=== PATIENT | male | born 1940 | race Caucasian/White ===

== ENCOUNTER 2020-04-14 04:39 | Inpatient (IN) | payer OTHER ==
[2020-04-14] MEDS ORDERED: CEFAZOLIN 2 GM/D5W 2 GM/50 ML ML IVPB ONE (10:28)
[2020-04-14] MEDS ORDERED: ceFAZolin SODIUM 1 GM VIAL ONE (10:39)
[2020-04-14] MEDS ORDERED: LIDOCAINE HCL 1%, 10 MG/ML (20ML VIAL) ONE (10:51)
[2020-04-14] MEDS ORDERED: EPHEDRINE SULFATE/0.9% NACL/PF 50 MG/10 ML SYRINGE NR ONE (12:21)
[2020-04-14] MEDS ORDERED: ROCURONIUM BROMIDE 50 MG/5 ML SYRINGE ONE ×2 (12:21→13:02)
[2020-04-14] MEDS ORDERED: PROPOFOL 20 ML ONE ×2 (12:21→13:02)
[2020-04-14] MEDS ORDERED: SUCCINYLCHOLINE CHLORIDE 200 MG/10 ML SYRINGE ONE (12:21)
[2020-04-14] MEDS ORDERED: MIDAZOLAM HCL 2 MG/2 ML SINGLE DOSE VIAL ONE (13:02)
[2020-04-14] MEDS ORDERED: ETOMIDATE 20 MG/10 ML AMPUL IVPUSH ONE (13:03)
[2020-04-14] MEDS ORDERED: oxyCODONE HCL 5 MG TABLET PO PRN ×2 (13:44→18:51)
[2020-04-14] MEDS ORDERED: ONDANSETRON 4 MG/2 ML VIAL IVPUSH PRN (13:44)
[2020-04-14] MEDS ORDERED: LACTATED RINGERS SOLUTION 1,000 ML IV SCH (13:45)
[2020-04-14] MEDS ORDERED: GLYCOPYRROLATE 0.2 MG/1 ML VIAL ONE (13:46)
[2020-04-14] MEDS ORDERED: NEOSTIGMINE METHYLSULFATE 0.5 MG/ML - 10 ML MDV ONE (13:46)
[2020-04-14] MEDS ORDERED: METOLAZONE 5 MG TABLET PO PRN (14:22)
[2020-04-14] MEDS ORDERED: SODIUM CHLORIDE 1,000 ML IV SCH (15:15)
[2020-04-14] MEDS ORDERED: oxyCODONE HCL 5 MG TABLET ONE (17:27)
[2020-04-14] MEDS ORDERED: MORPHINE SULFATE 2 MG/ML VIAL ONE (17:27)
[2020-04-14] MEDS: MORPHINE SULFATE 2 MG/ML VIAL IVPUSH PRN ×2 (17:30→23:12)
[2020-04-14] MEDS: FERROUS SO4 325 MG TABLET (FP) PO SCH (18:00)
[2020-04-14] MEDS: INSULIN SLIDING SCALE (NOVOLOG) 1 VIAL SQ SCH ×2 (19:21→21:48)
[2020-04-14] MEDS: DOCUSATE SODIUM 100 MG CAPSULE (FP) PO SCH (21:09)
[2020-04-14] MEDS: HEPARIN NA (PORCINE) 5,000 UNITS/ML 1ML VIAL SQ SCH (21:09)
[2020-04-14] MEDS: CEFAZOLIN 2 GM/D5W 2 GM/50 ML ML IVPB SCH (21:09)
[2020-04-14] MEDS: GABAPENTIN 100 MG CAPSULE PO SCH (21:10)
[2020-04-14] MEDS: BACLOFEN 10 MG TABLET (FP) PO SCH (21:10)
[2020-04-14] MEDS: oxyCODONE HCL 10 MG SUSTAINED ACTING TABLET PO SCH (21:10)
[2020-04-14] MEDS: ATORVASTATIN CA 40 MG TABLET (FP) PO SCH (21:10)
[2020-04-14] MEDS ORDERED: [UNRECOGNIZED DRUG - OTHER] PO SCH (22:00)
[2020-04-14] MEDS ORDERED: ZINC 50 MG PO SCH (22:00)
[2020-04-14] MEDS ORDERED: metoPROLOL SUCCINATE 25 MG TAB.SR.24H (FP) PO SCH (22:00)
[2020-04-15] MEDS: ACETAMINOPHEN 325 MG TABLET (FP) PO PRN (00:42)
[2020-04-15] MEDS: MORPHINE SULFATE 2 MG/ML VIAL IVPUSH PRN ×3 (03:34→21:40)
[2020-04-15] MEDS: CEFAZOLIN 2 GM/D5W 2 GM/50 ML ML IVPB SCH (04:38)
[2020-04-15] MEDS: HEPARIN NA (PORCINE) 5,000 UNITS/ML 1ML VIAL SQ SCH ×3 (05:55→21:33)
[2020-04-15] MEDS: GABAPENTIN 100 MG CAPSULE PO SCH ×3 (05:55→21:33)
[2020-04-15] MEDS: INSULIN SLIDING SCALE (NOVOLOG) 1 VIAL SQ SCH ×4 (06:14→21:39)
[2020-04-15] MEDS: oxyCODONE HCL 5 MG TABLET PO PRN ×2 (06:44→19:43)
[2020-04-15 08:29] LABS: BASO % 0.7 % (0-2.0); EOS % 0.7 % (0-4.5); HEMATOCRIT 24.2 % (35.4-49); HEMOGLOBIN 8.1 GM/dL (11.7-16.9); LYMPH % 12.3 % (8-40); MCH 27.1 pg (25.7-33.7); MCHC 33.3 g/dl (32.0-35.9); MEAN CELL VOLUME 81.3 fl (80-96); MEAN PLT VOLUME 8.2 fl (7.5-11.1); MONO % 6.1 % (3.8-10.2); NEUT % 80.2 % (42.8-82.8); PLATELET COUNT 187 K/MM3 (134-434); RBC 2.98 M/mm3 (4.00-5.60); RDW 17.9 % (11.9-15.9); WHITE BLOOD COUNT 6.4 K/mm3 (4.0-10.0)
[2020-04-15 08:53] LABS: ALBUMIN 2.5 g/dl (3.4-5.0); CALCIUM 8.2 mg/dL (8.5-10.1)
[2020-04-15 08:54] LABS: BLOOD UREA NITROGEN 26.4 mg/dL (7-18)
[2020-04-15 08:57] LABS: CREATININE 0.8 mg/dL (0.55-1.3)
[2020-04-15 08:58] LABS: BILIRUBIN,TOTAL 1.5 mg/dL (0.2-1); TOT PROT 6.2 g/dl (6.4-8.2)
[2020-04-15] MEDS ORDERED: PT OWN MED DRAWER 7, Y5N ONE (09:51)
[2020-04-15] MEDS: FERROUS SO4 325 MG TABLET (FP) PO SCH ×3 (09:54→16:40)
[2020-04-15] MEDS: THIAMINE HCL 100 MG TABLET (FP) PO SCH (09:54)
[2020-04-15] MEDS: BACLOFEN 10 MG TABLET (FP) PO SCH ×2 (09:54→21:33)
[2020-04-15] MEDS: MULTIVITAMINS (DAILY MVI) TABLET (FP) PO SCH (09:54)
[2020-04-15] MEDS: ASCORBIC ACID 500 MG TABLET (FP) PO SCH (09:54)
[2020-04-15] MEDS: FUROSEMIDE 40 MG TABLET (FP) PO SCH (09:54)
[2020-04-15] MEDS: SPIRONOLACTONE 25 MG TABLET PO SCH (09:55)
[2020-04-15] MEDS: oxyCODONE HCL 10 MG SUSTAINED ACTING TABLET PO SCH ×2 (09:55→21:32)
[2020-04-15] MEDS: SERTRALINE HCL 50 MG TABLET (FP) PO SCH (09:55)
[2020-04-15] MEDS: COLLAGENASE CLOSTRIDIUM HIST. 30 GRAMS TUBE TP SCH (09:56)
[2020-04-15] MEDS ORDERED: COLLAGENASE CLOSTRIDIUM HIST. 30 GRAMS TUBE TP SCH (10:00)
[2020-04-15] MEDS: POLYETHYLENE GLYCOL 3350 119 GM BTL PO SCH (10:15)
[2020-04-15] MEDS ORDERED: INSULIN (NOVOLOG) ASPART 100 UNITS/ML 10ML VIAL ONE (11:12)
[2020-04-15] MEDS: DOCUSATE SODIUM 100 MG CAPSULE (FP) PO SCH (21:32)
[2020-04-15] MEDS: ATORVASTATIN CA 40 MG TABLET (FP) PO SCH (21:32)
[2020-04-16] MEDS: GABAPENTIN 100 MG CAPSULE PO SCH ×3 (05:32→21:58)
[2020-04-16] MEDS: ZINC SULFATE 220 MG CAPSULE (FP) PO SCH ×3 (05:32→21:58)
[2020-04-16] MEDS: ACETAMINOPHEN 325 MG TABLET (FP) PO PRN (05:33)
[2020-04-16] MEDS: HEPARIN NA (PORCINE) 5,000 UNITS/ML 1ML VIAL SQ SCH ×3 (05:33→22:09)
[2020-04-16] MEDS: INSULIN SLIDING SCALE (NOVOLOG) 1 VIAL SQ SCH ×4 (06:33→22:08)
[2020-04-16 07:58] LABS: BASO % 0.5 % (0-2.0); EOS % 2.4 % (0-4.5); HEMATOCRIT 23.5 % (35.4-49); HEMOGLOBIN 7.8 GM/dL (11.7-16.9); LYMPH % 20.6 % (8-40); MCH 27.4 pg (25.7-33.7); MCHC 33.3 g/dl (32.0-35.9); MEAN CELL VOLUME 82.3 fl (80-96); MEAN PLT VOLUME 8.4 fl (7.5-11.1); MONO % 7.4 % (3.8-10.2); NEUT % 69.1 % (42.8-82.8); PLATELET COUNT 177 K/MM3 (134-434); RBC 2.86 M/mm3 (4.00-5.60); RDW 17.7 % (11.9-15.9); WHITE BLOOD COUNT 5.3 K/mm3 (4.0-10.0)
[2020-04-16 08:08] LABS: POTASSIUM 4.2 mmol/L (3.5-5.1)
[2020-04-16 08:27] LABS: ALBUMIN 2.6 g/dl (3.4-5.0); BLOOD UREA NITROGEN 26.1 mg/dL (7-18); CALCIUM 8.2 mg/dL (8.5-10.1)
[2020-04-16 08:30] LABS: CREATININE 0.9 mg/dL (0.55-1.3)
[2020-04-16 08:32] LABS: BILIRUBIN,TOTAL 0.6 mg/dL (0.2-1); TOT PROT 6.5 g/dl (6.4-8.2)
[2020-04-16] MEDS: oxyCODONE HCL 10 MG SUSTAINED ACTING TABLET PO SCH ×2 (09:15→21:58)
[2020-04-16] MEDS: FERROUS SO4 325 MG TABLET (FP) PO SCH ×3 (09:16→17:10)
[2020-04-16] MEDS: SERTRALINE HCL 50 MG TABLET (FP) PO SCH (09:16)
[2020-04-16] MEDS: POLYETHYLENE GLYCOL 3350 119 GM BTL PO SCH (09:16)
[2020-04-16] MEDS: MULTIVITAMINS (DAILY MVI) TABLET (FP) PO SCH (09:16)
[2020-04-16] MEDS: ASCORBIC ACID 500 MG TABLET (FP) PO SCH (09:16)
[2020-04-16] MEDS: BACLOFEN 10 MG TABLET (FP) PO SCH ×2 (09:16→21:58)
[2020-04-16] MEDS: FUROSEMIDE 40 MG TABLET (FP) PO SCH (09:16)
[2020-04-16] MEDS: SPIRONOLACTONE 25 MG TABLET PO SCH (09:16)
[2020-04-16] MEDS: THIAMINE HCL 100 MG TABLET (FP) PO SCH (09:16)
[2020-04-16] MEDS: COLLAGENASE CLOSTRIDIUM HIST. 30 GRAMS TUBE TP SCH (11:54)
[2020-04-16] MEDS: oxyCODONE HCL 5 MG TABLET PO PRN (15:30)
[2020-04-16 16:58] VITALS: BMI 19.6
[2020-04-16] MEDS: MORPHINE SULFATE 2 MG/ML VIAL IVPUSH PRN (18:35)
[2020-04-16] MEDS: DOCUSATE SODIUM 100 MG CAPSULE (FP) PO SCH (21:57)
[2020-04-16] MEDS: ATORVASTATIN CA 40 MG TABLET (FP) PO SCH (21:58)
[2020-04-17] MEDS: INSULIN SLIDING SCALE (NOVOLOG) 1 VIAL SQ SCH ×4 (06:26→21:20)
[2020-04-17] MEDS: ZINC SULFATE 220 MG CAPSULE (FP) PO SCH ×3 (06:27→21:11)
[2020-04-17] MEDS: MORPHINE SULFATE 2 MG/ML VIAL IVPUSH PRN ×2 (06:27→11:31)
[2020-04-17] MEDS: GABAPENTIN 100 MG CAPSULE PO SCH ×3 (06:27→21:11)
[2020-04-17] MEDS: HEPARIN NA (PORCINE) 5,000 UNITS/ML 1ML VIAL SQ SCH ×3 (06:27→21:11)
[2020-04-17] MEDS: FERROUS SO4 325 MG TABLET (FP) PO SCH ×3 (09:00→17:27)
[2020-04-17 09:55] LABS: BASO % 0.5 % (0-2.0); EOS % 2.2 % (0-4.5); HEMATOCRIT 23.8 % (35.4-49); HEMOGLOBIN 7.8 GM/dL (11.7-16.9); MCHC 32.9 g/dl (32.0-35.9); MEAN PLT VOLUME 8.4 fl (7.5-11.1); MONO % 5.5 % (3.8-10.2); NEUT % 76.8 % (42.8-82.8); PLATELET COUNT 196 K/MM3 (134-434); WHITE BLOOD COUNT 5.4 K/mm3 (4.0-10.0)
[2020-04-17 10:33] LABS: CALCIUM 8.5 mg/dL (8.5-10.1)
[2020-04-17 10:34] LABS: BLOOD UREA NITROGEN 23.7 mg/dL (7-18)
[2020-04-17 10:37] LABS: CREATININE 0.7 mg/dL (0.55-1.3)
[2020-04-17 10:38] LABS: POTASSIUM 3.9 mmol/L (3.5-5.1)
[2020-04-17] MEDS ORDERED: PT OWN MED DRAWER 7, Y5N ONE (10:45)
[2020-04-17] MEDS: AMINO ACIDS/PROTEIN HYDROLYS 30 ML LIQUID.PKT PO SCH (10:51)
[2020-04-17] MEDS: MULTIVITAMINS (DAILY MVI) TABLET (FP) PO SCH (10:51)
[2020-04-17] MEDS: SERTRALINE HCL 50 MG TABLET (FP) PO SCH (10:51)
[2020-04-17] MEDS: THIAMINE HCL 100 MG TABLET (FP) PO SCH (10:52)
[2020-04-17] MEDS: FUROSEMIDE 40 MG TABLET (FP) PO SCH (10:52)
[2020-04-17] MEDS: SPIRONOLACTONE 25 MG TABLET PO SCH (10:52)
[2020-04-17] MEDS: oxyCODONE HCL 10 MG SUSTAINED ACTING TABLET PO SCH ×2 (10:52→21:09)
[2020-04-17] MEDS: ASCORBIC ACID 500 MG TABLET (FP) PO SCH (10:52)
[2020-04-17] MEDS: BACLOFEN 10 MG TABLET (FP) PO SCH ×2 (10:52→21:12)
[2020-04-17] MEDS: COLLAGENASE CLOSTRIDIUM HIST. 30 GRAMS TUBE TP SCH (10:53)
[2020-04-17] MEDS: POLYETHYLENE GLYCOL 3350 119 GM BTL PO SCH (10:53)
[2020-04-17] MEDS: DOCUSATE SODIUM 100 MG CAPSULE (FP) PO SCH (21:11)
[2020-04-17] MEDS: ATORVASTATIN CA 40 MG TABLET (FP) PO SCH (21:11)
[2020-04-18] MEDS: oxyCODONE HCL 5 MG TABLET PO PRN (05:15)
[2020-04-18] MEDS: HEPARIN NA (PORCINE) 5,000 UNITS/ML 1ML VIAL SQ SCH ×3 (05:16→21:33)
[2020-04-18] MEDS: ZINC SULFATE 220 MG CAPSULE (FP) PO SCH ×3 (05:16→21:37)
[2020-04-18] MEDS: GABAPENTIN 100 MG CAPSULE PO SCH ×4 (05:17→21:37)
[2020-04-18] MEDS: INSULIN SLIDING SCALE (NOVOLOG) 1 VIAL SQ SCH ×4 (06:09→21:36)
[2020-04-18] MEDS: FERROUS SO4 325 MG TABLET (FP) PO SCH ×3 (08:31→17:33)
[2020-04-18] MEDS: AMINO ACIDS/PROTEIN HYDROLYS 30 ML LIQUID.PKT PO SCH (08:31)
[2020-04-18 09:42] LABS: HEMATOCRIT 22.9 % (35.4-49); HEMOGLOBIN 7.6 GM/dL (11.7-16.9); MCH 27.3 pg (25.7-33.7); MCHC 33.1 g/dl (32.0-35.9); MEAN CELL VOLUME 82.5 fl (80-96); MEAN PLT VOLUME 8.4 fl (7.5-11.1); PLATELET COUNT 196 K/MM3 (134-434); RBC 2.78 M/mm3 (4.00-5.60); RDW 17.7 % (11.9-15.9); WHITE BLOOD COUNT 5.1 K/mm3 (4.0-10.0)
[2020-04-18] MEDS: SERTRALINE HCL 50 MG TABLET (FP) PO SCH (09:50)
[2020-04-18] MEDS: oxyCODONE HCL 10 MG SUSTAINED ACTING TABLET PO SCH ×2 (09:50→21:38)
[2020-04-18] MEDS: BACLOFEN 10 MG TABLET (FP) PO SCH ×2 (09:51→21:37)
[2020-04-18] MEDS: FUROSEMIDE 40 MG TABLET (FP) PO SCH (09:51)
[2020-04-18] MEDS: MULTIVITAMINS (DAILY MVI) TABLET (FP) PO SCH (09:51)
[2020-04-18] MEDS: SPIRONOLACTONE 25 MG TABLET PO SCH (09:51)
[2020-04-18] MEDS: ASCORBIC ACID 500 MG TABLET (FP) PO SCH (09:51)
[2020-04-18] MEDS: THIAMINE HCL 100 MG TABLET (FP) PO SCH (09:51)
[2020-04-18] MEDS: POLYETHYLENE GLYCOL 3350 119 GM BTL PO SCH (09:52)
[2020-04-18] MEDS: COLLAGENASE CLOSTRIDIUM HIST. 30 GRAMS TUBE TP SCH (09:52)
[2020-04-18 10:02] LABS: POTASSIUM 3.9 mmol/L (3.5-5.1)
[2020-04-18 10:12] LABS: BLOOD UREA NITROGEN 26.5 mg/dL (7-18); CALCIUM 8.3 mg/dL (8.5-10.1)
[2020-04-18 10:15] LABS: CREATININE 0.8 mg/dL (0.55-1.3)
[2020-04-18] MEDS: ATORVASTATIN CA 40 MG TABLET (FP) PO SCH (21:37)
[2020-04-18] MEDS: METOPROLOL TARTRATE 25 MG TABLET (FP) PO SCH (21:39)
[2020-04-18] MEDS: DOCUSATE SODIUM 100 MG CAPSULE (FP) PO SCH (21:39)
[2020-04-19] MEDS: HEPARIN NA (PORCINE) 5,000 UNITS/ML 1ML VIAL SQ SCH ×3 (05:18→21:17)
[2020-04-19] MEDS: GABAPENTIN 100 MG CAPSULE PO SCH ×3 (05:19→21:16)
[2020-04-19] MEDS: ZINC SULFATE 220 MG CAPSULE (FP) PO SCH ×3 (05:19→21:18)
[2020-04-19] MEDS: INSULIN SLIDING SCALE (NOVOLOG) 1 VIAL SQ SCH ×4 (06:16→21:18)
[2020-04-19 08:59] LABS: EOS % 3.8 % (0-4.5); HEMATOCRIT 25.7 % (35.4-49); HEMOGLOBIN 8.6 GM/dL (11.7-16.9); LYMPH % 18.6 % (8-40); MCH 27.2 pg (25.7-33.7); MCHC 33.3 g/dl (32.0-35.9); MEAN CELL VOLUME 81.4 fl (80-96); MONO % 5.9 % (3.8-10.2); NEUT % 70.7 % (42.8-82.8); PLATELET COUNT 242 K/MM3 (134-434); RBC 3.16 M/mm3 (4.00-5.60); RDW 17.6 % (11.9-15.9); WHITE BLOOD COUNT 4.6 K/mm3 (4.0-10.0)
[2020-04-19 09:07] LABS: POTASSIUM 4.7 mmol/L (3.5-5.1)
[2020-04-19 09:09] LABS: BLOOD UREA NITROGEN 25.8 mg/dL (7-18); CALCIUM 8.6 mg/dL (8.5-10.1)
[2020-04-19 09:10] LABS: ALBUMIN 2.7 g/dl (3.4-5.0); MAGNESIUM 2.2 mg/dL (1.8-2.4)
[2020-04-19 09:12] LABS: CREATININE 0.7 mg/dL (0.55-1.3); PHOSPHOROUS 3.2 mg/dL (2.5-4.9)
[2020-04-19 09:14] LABS: BILIRUBIN,TOTAL 0.4 mg/dL (0.2-1); TOT PROT 6.8 g/dl (6.4-8.2)
[2020-04-19] MEDS: SPIRONOLACTONE 25 MG TABLET PO SCH (09:21)
[2020-04-19] MEDS: MULTIVITAMINS (DAILY MVI) TABLET (FP) PO SCH (09:21)
[2020-04-19] MEDS: THIAMINE HCL 100 MG TABLET (FP) PO SCH (09:21)
[2020-04-19] MEDS: AMINO ACIDS/PROTEIN HYDROLYS 30 ML LIQUID.PKT PO SCH (09:21)
[2020-04-19] MEDS: ASCORBIC ACID 500 MG TABLET (FP) PO SCH (09:22)
[2020-04-19] MEDS: METOPROLOL TARTRATE 25 MG TABLET (FP) PO SCH ×2 (09:22→21:18)
[2020-04-19] MEDS: BACLOFEN 10 MG TABLET (FP) PO SCH ×2 (09:22→21:17)
[2020-04-19] MEDS: SERTRALINE HCL 50 MG TABLET (FP) PO SCH (09:22)
[2020-04-19] MEDS: FERROUS SO4 325 MG TABLET (FP) PO SCH ×3 (09:22→17:00)
[2020-04-19] MEDS: FUROSEMIDE 40 MG TABLET (FP) PO SCH (09:22)
[2020-04-19] MEDS: oxyCODONE HCL 10 MG SUSTAINED ACTING TABLET PO SCH ×2 (09:23→21:20)
[2020-04-19] MEDS: POLYETHYLENE GLYCOL 3350 119 GM BTL PO SCH (09:25)
[2020-04-19] MEDS: COLLAGENASE CLOSTRIDIUM HIST. 30 GRAMS TUBE TP SCH (11:41)
[2020-04-19] MEDS ORDERED: PT OWN MED DRAWER 7, Y5N ONE (11:51)
[2020-04-19] MEDS: ATORVASTATIN CA 40 MG TABLET (FP) PO SCH (21:16)
[2020-04-19] MEDS: DOCUSATE SODIUM 100 MG CAPSULE (FP) PO SCH (21:17)
[2020-04-20] MEDS: HEPARIN NA (PORCINE) 5,000 UNITS/ML 1ML VIAL SQ SCH (05:12)
[2020-04-20] MEDS: GABAPENTIN 100 MG CAPSULE PO SCH (05:12)
[2020-04-20] MEDS: ZINC SULFATE 220 MG CAPSULE (FP) PO SCH (05:12)
[2020-04-20] MEDS: INSULIN SLIDING SCALE (NOVOLOG) 1 VIAL SQ SCH (06:22)
[2020-04-20 08:32] LABS: BASO % 0.8 % (0-2.0); EOS % 3.6 % (0-4.5); HEMATOCRIT 23.1 % (35.4-49); HEMOGLOBIN 7.7 GM/dL (11.7-16.9); LYMPH % 18.6 % (8-40); MCH 27.2 pg (25.7-33.7); MCHC 33.1 g/dl (32.0-35.9); MEAN CELL VOLUME 82.4 fl (80-96); MEAN PLT VOLUME 7.9 fl (7.5-11.1); MONO % 6.2 % (3.8-10.2); NEUT % 70.8 % (42.8-82.8); PLATELET COUNT 221 K/MM3 (134-434); RBC 2.81 M/mm3 (4.00-5.60); RDW 17.6 % (11.9-15.9); WHITE BLOOD COUNT 5.3 K/mm3 (4.0-10.0)
[2020-04-20 08:50] LABS: POTASSIUM 4.3 mmol/L (3.5-5.1)
[2020-04-20 08:53] LABS: CALCIUM 8.6 mg/dL (8.5-10.1)
[2020-04-20 08:54] LABS: ALBUMIN 2.6 g/dl (3.4-5.0); BLOOD UREA NITROGEN 32.7 mg/dL (7-18); MAGNESIUM 2.1 mg/dL (1.8-2.4)
[2020-04-20 08:57] LABS: CREATININE 0.7 mg/dL (0.55-1.3)
[2020-04-20 08:58] LABS: PHOSPHOROUS 2.9 mg/dL (2.5-4.9)
[2020-04-20 08:59] LABS: TOT PROT 6.5 g/dl (6.4-8.2)
[2020-04-20] MEDS: THIAMINE HCL 100 MG TABLET (FP) PO SCH (09:13)
[2020-04-20] MEDS: ASCORBIC ACID 500 MG TABLET (FP) PO SCH (09:13)
[2020-04-20] MEDS: AMINO ACIDS/PROTEIN HYDROLYS 30 ML LIQUID.PKT PO SCH (09:13)
[2020-04-20] MEDS: METOPROLOL TARTRATE 25 MG TABLET (FP) PO SCH (09:13)
[2020-04-20] MEDS: SERTRALINE HCL 50 MG TABLET (FP) PO SCH (09:13)
[2020-04-20] MEDS: FERROUS SO4 325 MG TABLET (FP) PO SCH (09:13)
[2020-04-20] MEDS: POLYETHYLENE GLYCOL 3350 119 GM BTL PO SCH (09:14)
[2020-04-20] MEDS: COLLAGENASE CLOSTRIDIUM HIST. 30 GRAMS TUBE TP SCH (09:14)
[2020-04-20] MEDS: FUROSEMIDE 40 MG TABLET (FP) PO SCH (09:14)
[2020-04-20] MEDS: MULTIVITAMINS (DAILY MVI) TABLET (FP) PO SCH (09:14)
[2020-04-20] MEDS: SPIRONOLACTONE 25 MG TABLET PO SCH (09:14)
[2020-04-20] MEDS: oxyCODONE HCL 10 MG SUSTAINED ACTING TABLET PO SCH (09:15)
[2020-04-20] MEDS: BACLOFEN 10 MG TABLET (FP) PO SCH (09:30)
[2020-04-20 11:13] VITALS: BP 106/53; PULSE 65; TEMP 98.5
== END 2020-04-20 10:10 | DRG 240 ==
LOC: J2C 04:39 → EDSTATUS 11:00 → J8W 18:10
PROVIDERS: ADMIT Surgery Vascular Surgery; ATTEND Internal Medicine
PROC: 0Y6D0Z3 Detachment at Left Upper Leg, Low, Open Approach (ICD-10-PCS; principal; 2020-04-14 11:00)
DX: E11.52 Type 2 diabetes mellitus with diabetic peripheral angiopathy with gangrene (principal); I96 Gangrene, not elsewhere classified; I48.20 Chronic atrial fibrillation, unspecified; D62 Acute posthemorrhagic anemia; G82.20 Paraplegia, unspecified; E11.621 Type 2 diabetes mellitus with foot ulcer; L97.519 Non-pressure chronic ulcer of other part of right foot with unspecified severity; I25.10 Atherosclerotic heart disease of native coronary artery without angina pectoris; F03.90 Unspecified dementia, unspecified severity, without behavioral disturbance, psychotic disturbance, mood disturbance, and anxiety; Z95.1 Presence of aortocoronary bypass graft; I25.5 Ischemic cardiomyopathy; I10 Essential (primary) hypertension; E78.5 Hyperlipidemia, unspecified; E87.6 Hypokalemia; Z74.01 Bed confinement status; F32.9 Major depressive disorder, single episode, unspecified; E11.622 Type 2 diabetes mellitus with other skin ulcer
CPT/HCPCS: 36415; 80048; 80053; 82962; 83735; 84100; 85025; 85027; 86850; 86900; 86901; 88307-TC; 88311-TC; 94760; 97116-GP; 97162-GP; C9803; J0475; J1644; U0003